=== PATIENT | male | born 1940 | race Caucasian/White ===

== ENCOUNTER 2017-04-24 11:33 | Emergency (ER) | payer MEDICARE, BC ==
[~2017-04-24 11:33] MED LIST: COUM5TAB PO; MAGN400 PO; MECL25CH PO; OMEP20CA5 PO; SYNT75TA PO; TAB-TAB PO
[2017-04-24 11:48] VITALS: BP 136/76; PULSE 76; RESP 20; TEMP 98.1; O2SAT 96
[2017-04-24] MEDS ORDERED: LEVO.1 PO (13:48)
[2017-04-24] MEDS ORDERED: PRIL20TA2 PO (13:48)
[2017-04-24] MEDS ORDERED: METO25TA3 PO (13:48)
[2017-04-24] MEDS ORDERED: APIX5TAB PO (13:48)
[2017-04-24] MEDS ORDERED: HYDR25TA5 PO (13:48)
[2017-04-24] MEDS ORDERED: SYNT300T PO (13:48)
--- NOTE | 2017-04-24 13:53 | PD ---
HPI Chief Complaint: Pain: Acute or Chronic Time Seen by Provider: 13:40 Travel History International Travel<30 days: No Contact w/Intl Traveler<30days: No Traveled to known affect area: No History of Present Illness HPI 76-year-old male presents the ED for evaluation of 3 day history of "excruciating" pain on the medial aspect of the left foot. Onset when he woke up. States pain is worse with the first few steps and after periods of rest. He can identify no acute injury. Denies numbness, tingling, weakness, limitations to range of motion of the extremity. Denies history of gout. Denies recent alcohol consumption, fatty meals. He treated at home with Bin WATERMAN with no improvement of symptoms. He had a friend drive him to the emergency room today. PFSH Past Medical History Arthritis: Yes Asthma: No Blood Disorders: No Depression: No (DENIES) Heart Rhythm Problems: Yes (AFIB) Cancer: Yes (REMOVED FROM NECK 3 MONTHS AGO, BASAL CELL) Cardiovascular Problems: Yes High Cholesterol: Yes (DOES NOT TAKE RX MEDS) Chemotherapy: No Chest Pain: Yes Congestive Heart Failure: No COPD: No Cerebrovascular Accident: Yes Diminished Hearing: No Diverticulitis: Yes Endocrine: No GERD: Yes Genitourinary: No Hiatal Hernia: Yes Hypertension: Yes Immune Disorder: Yes Kidney Stones: No Musculoskeletal: Yes Neurologic: Yes Psychiatric: No Reproductive: No Respiratory: Yes Integumentary: Yes (SKIN CANCER) Migraines: No Radiation Therapy: No Renal Failure: No Seizures: No Sleep Apnea: Yes Ulcer: No Past Surgical History Abdominal Surgery: No Cardiac Surgery: Yes (CARDIOVERSION AFIB) Ear Surgery: No Endocrine Surgery: No Eye Surgery: Yes (LASER SURGERY ON R EYE) Genitourinary Surgery: No Gynecologic Surgery: No Neurologic Surgery: Yes (DEC 2005) Oral Surgery: No Pacemaker: No Thoracic Surgery: No Other Surgery: Yes (DEC 2005 'BRAIN SURGERY' (BLEEDING)) Social History Alcohol Use: No (QUIT 2 MONTH AGO) Tobacco Use: No (QUIT 3 MONTHS AGO) Substance Use: No Allergies-Medications (Allergen,Severity, Reaction): Coded Allergies: No Known Allergies (Unverified Adverse Reaction, Unknown, 04/24/17) Reported Meds & Prescriptions Reported Meds & Active Scripts Active Colchicine 0.6 Mg Cap 0.6 Mg PO BID 5 Days Reported Metoprolol Tartrate 25 Mg Tab 25 Mg PO DAILY Hydrochlorothiazide 25 Mg Tab 25 Mg PO DAILY Prilosec (Omeprazole Magnesium) 20 Mg Tab 40 Mg PO DAILY Synthroid (Levothyroxine Sodium) 100 Mcg Tab 400 Mcg PO DAILY Synthroid (Levothyroxine Sodium) 300 Mcg Tab 300 Mcg PO DAILY Eliquis (Apixaban) 5 Mg Tab 5 Mg PO BID Review of Systems Except as stated in HPI: all other systems reviewed are Neg Physical Exam Narrative GENERAL: Well-nourished, well-developed obese white male in no acute distress. SKIN: Focused skin assessment warm/dry. Mild tenderness and erythema on the medial aspect of the left upper foot. HEAD: Normocephalic. EYES: No scleral icterus. No injection or drainage. NECK: Supple, trachea midline. No JVD or lymphadenopathy. CARDIOVASCULAR: Regular rate and rhythm without murmurs, gallops, or rubs. RESPIRATORY: Breath sounds equal bilaterally. No accessory muscle use. GASTROINTESTINAL: Abdomen soft, non-tender, nondistended. MUSCULOSKELETAL: No cyanosis, or edema. 2+ DP pulse. No pain of the plantar surface with flexion. Mild tenderness to palpation of the medial malleolus. No other tenderness noted. Patient is able to flex and extend the ankle. He is able to wiggle her toes. Neurovascularly intact to light touch distally. BACK: Nontender without obvious deformity. No CVA tenderness. Data Data Last Documented VS Vital Signs Date Time Temp Pulse Resp B/P (MAP) Pulse Ox O2 Delivery O2 Flow Rate FiO2 04/24/17 11:48 98.1 76 20 136/76 (96) 96 Orders Orders Ankle, Complete ([id number]) (04/24/17 13:43) Ice/Cold Pack (04/24/17 13:43) Tramadol (Ultram) (04/24/17 14:00) Colchicine (Colchicine) (04/24/17 14:30) Ed Discharge Order (04/24/17 14:19) [facility] Medical Decision Making Medical Screen Exam Complete: Yes Emergency Medical Condition: Yes Differential Diagnosis Musculoskeletal pain versus osteoarthritis versus contusion versus gouty arthritis versus other Narrative Course 76-year-old male presents the ED for evaluation of 3 day history of "excruciating" pain on the medial aspect of the left foot. Onset when he woke up. States pain is worse with the first few steps and after periods of rest. Denies history of gout. Denies recent alcohol consumption, fatty meals. Vitals reviewed. On exam the patient has some erythema and tenderness of the medial aspect of the left foot/ankle. Exam otherwise unremarkable. Ice pack was applied. Patient was administered here tramadol. Score for the clinical diagnostic for gout 4, intermediate probability. We'll trial colchicine. Patient's prescribe 0.6 mg colchicine 3 times a day. First dose administered in the ED. He was cautioned to stop taking the medication if he does not have improvement of his symptoms. He was instructed to follow-up with either his primary care provider or the station chief. He indicated understanding of instructions and is agreeable to the care plan. He is stable and discharged home. Diagnosis Primary Impression: Gout attack Qualified Codes: M10.9 - Gout, unspecified Referrals: Primary Care Physician Patient Instructions: General Instructions, Gout (ED) Additional Instructions: Rest, ice, elevate the extremity. Apply ice no longer than 10-15 minutes per hour a few times a day. Colchicine as prescribed Return to normal, gentle activity as tolerated. Follow-up with her primary care provider as discussed. Return to the ED for any urgent or emergent medical condition. Med/Other Pt SpecificInfo: Prescription(s) given Scripts Colchicine (Colchicine) 0.6 Mg Cap 0.6 MG PO BID for Gout for 5 Days, #10 CAP 0 Refills Prov: Smiley Granados MD 04/24/17 Disposition: 01 DISCHARGE HOME Condition: Stable Melinda Kennedy Apr 24, 2017 13:53
[2017-04-24] MEDS ORDERED: traMADol HCL 50 MG TAB PO ONE (14:00)
--- NOTE | 2017-04-24 14:02 | RADRPT ---
EXAM DATE/TIME: 04/24/2017 13:53 [facility] COMPARISON: No previous studies available for comparison. INDICATIONS : Complains of shooting pain in medial left ankle. No known injury to ankle. MEDICAL HISTORY : None. SURGICAL HISTORY : None. ENCOUNTER: Initial ACUITY: 2 days PAIN SCORE: 6/10 LOCATION: Left medial ankle FINDINGS: Three view exam was performed of the left ankle. The bony structures are in normal alignment. No ev idence of fracture, dislocation, or soft tissue swelling. The ankle mortise is intact. No radiopaqu e foreign bodies are seen. Bony mineralization is normal. CONCLUSION: Unremarkable examination of the left ankle. Jimbo Todd MD on April 24, 2017 at 13:59 Board Certified Radiologist. This report was verified electronically.
[2017-04-24] MEDS ORDERED: COLC1CAP3 PO (14:18)
[2017-04-24] MEDS ORDERED: COLCHICINE 0.6 MG TAB PO ONE (14:30)
== END 2017-04-24 15:16 | disposition home or self-care (01) ==
LOC: PHED 11:33 → PHEFT 15:16
DX: M10.9 Gout, unspecified (principal); I10 Essential (primary) hypertension; E78.00 Pure hypercholesterolemia, unspecified; I48.91 Unspecified atrial fibrillation; K21.9 Gastro-esophageal reflux disease without esophagitis; Z86.73 Personal history of transient ischemic attack (TIA), and cerebral infarction without residual deficits; Z85.828 Personal history of other malignant neoplasm of skin; Z72.0 Tobacco use; Z79.899 Other long term (current) drug therapy
CPT/HCPCS: 73610; 99283